=== PATIENT | male | born 1950 | race African-American/Black ===

== ENCOUNTER 2018-08-22 03:26 | Emergency (ER) | payer SELFPAY ==
[~2018-08-22] VITALS: Ht 177.8 cm; Wt 73.0 kg
[2018-08-22 03:29] VITALS: BP 0/0
== END 2018-08-22 15:11 | disposition left against medical advice (07) ==
LOC: ER 03:26
DX: R68.89 Other general symptoms and signs (principal); Z53.21 Procedure and treatment not carried out due to patient leaving prior to being seen by health care provider